=== PATIENT | female | born 1950 | race Hispanic/Latino ===

== ENCOUNTER 2017-08-15 09:13 | Outpatient (CLI) | payer MEDICARE ==
--- NOTE | 2017-08-15 09:32 | XRay Report ---
Chest 2 views: History: Bronchitis. Findings: Normal cardiomediastinal silhouette. Trachea is midline. No consolidation, pneumothorax or pleural effusion. Impression: No acute cardiopulmonary findings.
== END 2017-08-15 09:14 | disposition home or self-care (01) ==
LOC: SPVIMAG 09:13
PROVIDERS: ATTEND Internal Medicine
DX: J40 Bronchitis, not specified as acute or chronic (principal)
CPT/HCPCS: 71046

== ENCOUNTER 2017-09-26 09:10 | Outpatient (CLI) | payer MEDICARE ==
--- NOTE | 2017-09-27 15:43 | Mammography Report ---
BILATERAL DIGITAL SCREENING MAMMOGRAM with CAD: 09/26/17 09:10:00 CLINICAL: Routine screening. COMPARISON:06/17/16 FINDINGS: The breasts are heterogeneously dense, which may obscure small masses. No mass, architectural distortion or suspicious calcifications. IMPRESSION: No mammographic evidence of malignancy. BI-RADS CATEGORY: 1 - - Negative RECOMMENDATION: Routine mammographic screening in one year. COMMENT: Patient follow-up letters are generated by our [employer] application.
== END 2017-09-26 09:11 | disposition home or self-care (01) ==
LOC: SPVWC 09:10
PROVIDERS: ATTEND Obstetrics & Gynecology
DX: Z12.31 Encounter for screening mammogram for malignant neoplasm of breast (principal)
CPT/HCPCS: 77067

== ENCOUNTER 2018-03-22 14:54 | Outpatient (CLI) | payer MEDICARE ==
--- NOTE | 2018-03-22 15:36 | XRay Report ---
LEFT ANKLE THREE VIEWS: 03/22/18 CLINICAL: Injury to the ankle one week ago. Pain. FINDINGS: Oblique mildly displaced comminuted fracture of the distal fibula with extension into the tibiofibular syndesmosis. Mild periosteal reaction on the medial aspect of the distal fibula but no callus. No other fracture. The ankle mortise is intact. Marked soft tissue swelling at the ankle. A large plantar calcaneal spur and an anterior navicular-calcaneal osteophyte. No soft tissue air or foreign body. IMPRESSION: A subacute mildly displaced traumatic oblique comminuted closed fracture of the distal fibula.Plantar enthesopathy. A verbal report was given to Dr. John on 03/22/18 at 15:35.
== END 2018-03-22 14:55 | disposition home or self-care (01) ==
LOC: SPVIMAG 14:54
PROVIDERS: ATTEND Internal Medicine
DX: S82.832A Other fracture of upper and lower end of left fibula, initial encounter for closed fracture (principal); S96.912A Strain of unspecified muscle and tendon at ankle and foot level, left foot, initial encounter; M77.52 Other enthesopathy of left foot and ankle; I10 Essential (primary) hypertension; E11.9 Type 2 diabetes mellitus without complications; K21.9 Gastro-esophageal reflux disease without esophagitis; Z79.4 Long term (current) use of insulin; Z80.1 Family history of malignant neoplasm of trachea, bronchus and lung; X58.XXXA Exposure to other specified factors, initial encounter; Y93.89 Activity, other specified; Y92.89 Other specified places as the place of occurrence of the external cause; Y99.8 Other external cause status

== ENCOUNTER 2018-09-27 11:38 | Outpatient (CLI) | payer MEDICARE ==
--- NOTE | 2018-09-27 15:29 | Mammography Report ---
BILATERAL DIGITAL SCREENING MAMMOGRAM with CAD: 09/27/18 11:38:00 CLINICAL: Routine screening. COMPARISON:09/26/17 FINDINGS: The breasts are heterogeneously dense, which may obscure small masses. No mass, architectural distortion or suspicious calcifications. IMPRESSION: No mammographic evidence of malignancy. BI-RADS CATEGORY: 1 - - Negative RECOMMENDATION: Routine mammographic screening in one year. COMMENT: Patient follow-up letters are generated by our [employer] application.
== END 2018-09-27 11:39 | disposition home or self-care (01) ==
LOC: SPVWC 11:38
PROVIDERS: ATTEND Obstetrics & Gynecology
DX: Z12.31 Encounter for screening mammogram for malignant neoplasm of breast (principal); I10 Essential (primary) hypertension; E11.9 Type 2 diabetes mellitus without complications; K21.9 Gastro-esophageal reflux disease without esophagitis; Z90.89 Acquired absence of other organs
CPT/HCPCS: 77067

== ENCOUNTER 2019-10-01 09:46 | Outpatient (CLI) | payer MEDICARE ==
--- NOTE | 2019-10-03 09:20 | Mammography Report ---
DIGITAL SCREENING MAMMOGRAM WITH CAD, 10/01/2019 INDICATION: Routine screening mammography. TECHNIQUE: Digital bilateral 2D mammography was obtained in the craniocaudal and mediolateral obliq ue projections. This examination was interpreted with the benefit of Computer-Aided Detection analysi s. COMPARISON: 06/17/2016 FINDINGS: Breast Density: The breasts are heterogeneously dense, which may obscure small masses. There is no evidence of dominant mass, suspicious calcifications or architectural distortion in eithe r breast. IMPRESSION: No mammographic evidence of malignancy. Follow up recommendation: Routine yearly BI-RADS Category 1: Negative. A "normal" or negative report should not discourage follow up or biopsy of a clinically significant f inding. A written summary of these findings will be mailed to the patient. The patient will be entered into a mammography reporting system which will generate a reminder letter for the patient's next appointmen t at the appropriate interval. The [employer] recommends yearly mammograms starting at age 40 and continuing as l kathia as a woman is in good health. Breast MRI is recommended for women with an approximate 20-25% or greater lifetime risk of breast cancer, including women with a strong family history of breast or ova nelson cancer or who have been treated for Hodgkin's disease. Signer Name: Dae James MD Signed: 10/03/2019 9:15 AM Workstation Name: [id number]
== END 2019-10-01 09:47 | disposition home or self-care (01) ==
LOC: SPVWC 09:46
PROVIDERS: ATTEND Obstetrics & Gynecology
DX: Z12.31 Encounter for screening mammogram for malignant neoplasm of breast (principal)
CPT/HCPCS: 77067

== ENCOUNTER 2020-06-10 11:19 | Outpatient (CLI) | payer MEDICARE ==
--- NOTE | 2020-06-10 14:52 | XRay Report ---
LEFT HUMERUS 2 VIEWS INDICATION / CLINICAL INFORMATION: ACCIDENTAL FALL. COMPARISON: None available. FINDINGS: No significant skeletal abnormality Signer Name: Jose M Martinez MD FACR Signed: 06/10/2020 2:48 PM Workstation Name: [id number]
--- NOTE | 2020-06-10 14:52 | XRay Report ---
SACRUM AND COCCYX 3 VIEWS INDICATION / CLINICAL INFORMATION: ACCIDENTAL FALL. COMPARISON: None available. FINDINGS: Degenerative change in the lower lumbar region. No other significant skeletal abnormality Signer Name: Jose M Martinez MD FACR Signed: 06/10/2020 2:47 PM Workstation Name: [id number]
--- NOTE | 2020-06-10 14:54 | XRay Report ---
LEFT SHOULDER 3 VIEWS INDICATION / CLINICAL INFORMATION: LEFT SHOULDER P. COMPARISON: None available. FINDINGS: No significant skeletal abnormality Signer Name: Jose M Martinez MD FACR Signed: 06/10/2020 2:50 PM Workstation Name: [email or web address]
--- NOTE | 2020-06-10 14:54 | XRay Report ---
BILATERAL ANKLE 7 VIEWS INDICATION / CLINICAL INFORMATION: ACCIDENTAL FALL. COMPARISON: None available. FINDINGS: Small calcaneal spurs. Old healed distal left fibular fracture. No other significant skeletal abnorma lity Signer Name: Jose M Martinez MD FACR Signed: 06/10/2020 2:49 PM Workstation Name: [id number]
--- NOTE | 2020-06-10 16:15 | XRay Report ---
XR knees standing AP Bilateral INDICATION / CLINICAL INFORMATION: ACCIDENTAL FALL COMPARISON: None available. FINDINGS: There is marked osteoarthritis in both knees, preferentially involving the medial compartments. Both medial compartments are severely narrowed on weightbearing with mild genu varus and lateral tibial tr anslation on the right. Pelvis and lower sacrum are detailed separately. IMPRESSION: Marked bilateral knee osteoarthritis, as above. No acute osseous findings. Signer Name: Jonathan Hodge MD Signed: 06/10/2020 4:11 PM Workstation Name: [id number]
== END 2020-06-10 11:20 | disposition home or self-care (01) ==
LOC: XRAY 11:19
PROVIDERS: ATTEND Internal Medicine
DX: M17.0 Bilateral primary osteoarthritis of knee (principal); M77.32 Calcaneal spur, left foot; M47.816 Spondylosis without myelopathy or radiculopathy, lumbar region; Z91.81 History of falling
CPT/HCPCS: 72220; 73565

== ENCOUNTER 2020-08-26 10:31 | Outpatient (CLI) | payer MEDICARE ==
--- NOTE | 2020-08-26 14:10 | Cat Scan Report ---
CT CHEST WITHOUT CONTRAST INDICATION / CLINICAL INFORMATION: COUGH. TECHNIQUE: Axial CT images were obtained through the chest without contrast. Sagittal and coronal reformatted im ages. All CT scans at this location are performed using CT dose reduction for ALARA by means of autom ated exposure control. COMPARISON: None available. FINDINGS: HEART: No significant abnormality. THORACIC AORTA: No significant abnormality. MEDIASTINUM and YOGESH: No significant abnormality. LUNGS: No acute air space or interstitial disease. PLEURA: No significant pleural effusion. No pneumothorax. SKELETAL SYSTEM: Osteopenia is suspected. Mild multilevel thoracic spondylosis. UPPER ABDOMEN: No significant abnormality. ADDITIONAL FINDINGS: Old granulomatous disease findings are noted. IMPRESSION: No significant abnormality. No clear explanation for cough. Signer Name: Fredy Blanc Jr, MD Signed: 08/26/2020 2:06 PM Workstation Name: [id number]
== END 2020-08-26 10:32 | disposition home or self-care (01) ==
LOC: CT 10:31
PROVIDERS: ATTEND Specialist
DX: R06.02 Shortness of breath (principal); R05 Cough; M47.814 Spondylosis without myelopathy or radiculopathy, thoracic region
CPT/HCPCS: 36415; 71250; 82785

== ENCOUNTER 2020-10-01 14:33 | Outpatient (CLI) | payer MEDICARE ==
--- NOTE | 2020-10-02 07:56 | Mammography Report ---
DIGITAL SCREENING MAMMOGRAM WITH CAD, 10/01/2020 CLINICAL INFORMATION / INDICATION: Routine screening mammography. SCREENING MAMMO TECHNIQUE: Digital bilateral 2D mammography was obtained in the craniocaudal and mediolateral obliqu e projections. This examination was interpreted with the benefit of Computer-Aided Detection analysis . COMPARISON: 10/01/2019 FINDINGS: Breast Density: There are scattered areas of fibroglandular density. No dominant mass, suspicious calcifications, or architectural distortion in either breast. IMPRESSION: No mammographic evidence of malignancy. Follow up recommendation: Routine yearly BI-RADS Category 1: Negative. A "normal" or negative report should not discourage follow up or biopsy of a clinically significant f inding. A written summary of these findings will be mailed to the patient. The patient will be entered into a mammography reporting system which will generate a reminder letter for the patient's next appointmen t at the appropriate interval. The [employer] recommends yearly mammograms starting at age 40 and continuing as l kathia as a woman is in good health. Breast MRI is recommended for women with an approximate 20-25% or greater lifetime risk of breast cancer, including women with a strong family history of breast or ova nelson cancer or who have been treated for Hodgkin's disease. Signer Name: Jus Navarro MD Signed: 10/02/2020 7:51 AM Workstation Name: [id number]
--- NOTE | 2020-10-02 08:43 | Mammography Report ---
DEXA BONE DENSITY SCAN INDICATION / CLINICAL INFORMATION: ASYMPTOMATIC POSTMENOPAUSAL STATUS Z78.0. 70 years Female COMPARISON: None available. LUMBAR SPINE, L1, L3, L4: - Bone mineral density (BMD) = 1.339 g/cm2. - T-score = 2.6 - Z-score = 4.8 Change (%) since most recent prior (if available): None available. RIGHT HIP, NECK : - Bone mineral density (BMD) = 0.753 g/cm2. - T-score = -0.9 - Z-score = 1.0 Change (%) since most recent prior (if available): None available. IMPRESSION: 1. WHO Classification: Normal bone density. Fracture Risk: Not Increased. Note: 10-Year Fracture Risk (FRAX) not reported. This DEXA unit lacks FRAX functionality. BMD Reporting Guidelines (ISCD, 2015) BMD Reporting in Postmenopausal Women and in Men Age 50 and Older - T-scores are preferred. - The WHO densitometric classification is applicable. BMD Reporting in Females Prior to Menopause and in Males Younger Than Age 50 - Z-scores, not T-scores, are preferred. This is particularly important in children. - A Z-score of -2.0 or lower is defined as below the expected range for age, and a Z-score above -2.0 is within the expected range for age. - Osteoporosis cannot be diagnosed in men under age 50 on the basis of BMD alone. - The WHO diagnostic criteria may be applied to women in the menopausal transition. http://www.iscd.org/official-positions/1979-hltk-glcnnecq-positions-adult/ Signer Name: Agustina Lyons MD Signed: 10/02/2020 8:39 AM Workstation Name: [email or web address]
== END 2020-10-01 14:34 | disposition home or self-care (01) ==
LOC: SPVWC 14:33
PROVIDERS: ATTEND Internal Medicine
DX: Z12.31 Encounter for screening mammogram for malignant neoplasm of breast (principal); Z13.820 Encounter for screening for osteoporosis; Z78.0 Asymptomatic menopausal state
CPT/HCPCS: 77067; 77080

== ENCOUNTER 2021-10-07 11:45 | Outpatient (CLI) | payer MEDICARE ==
--- NOTE | 2021-10-09 09:35 | Mammography Report ---
DIGITAL SCREENING MAMMOGRAM WITH CAD, 10/07/2021 CLINICAL INFORMATION / INDICATION: Routine screening mammography. SCREENING MAMMO Z12.31 TECHNIQUE: Digital bilateral 2D mammography was obtained in the craniocaudal and mediolateral obliqu e projections. This examination was interpreted with the benefit of Computer-Aided Detection analysis . COMPARISON: 10/01/2020. FINDINGS: Breast Density: There are scattered areas of fibroglandular density. No dominant mass, suspicious calcifications, or architectural distortion in either breast. IMPRESSION: No mammographic evidence of malignancy. Follow up recommendation: Routine yearly BI-RADS Category 1: NEGATIVE A "normal" or negative report should not discourage follow up or biopsy of a clinically significant f inding. A written summary of these findings will be mailed to the patient. The patient will be entered into a mammography reporting system which will generate a reminder letter for the patient's next appointmen t at the appropriate interval. The [employer] recommends yearly mammograms starting at age 40 and continuing as l kathia as a woman is in good health. Breast MRI is recommended for women with an approximate 20-25% or greater lifetime risk of breast cancer, including women with a strong family history of breast or ova nelson cancer or who have been treated for Hodgkin's disease. Signer Name: Isael Stone MD Signed: 10/09/2021 9:30 AM Workstation Name: [email or web address]
== END 2021-10-07 11:46 | disposition home or self-care (01) ==
LOC: SPVWC 11:45
PROVIDERS: ATTEND Internal Medicine
DX: Z12.31 Encounter for screening mammogram for malignant neoplasm of breast (principal)
CPT/HCPCS: 77067